=== PATIENT | female | born 1965 | race Caucasian/White ===

== ENCOUNTER 2019-10-20 08:41 | Outpatient (CLI) | payer OTHER ==
[2019-10-20] MEDS ORDERED: OMNIPAQUE 350 MG/ML, 100ML BOTTLE ONE (15:01)
== END 2019-10-20 23:59 | disposition home or self-care (01) ==
LOC: CFH 08:41
PROVIDERS: ATTEND Nurse Practitioner Family
DX: R93.89 Abnormal findings on diagnostic imaging of other specified body structures (principal)
CPT/HCPCS: 70491; 82565; Q9967

== ENCOUNTER 2021-08-16 06:55 | Outpatient (CLI) | payer OTHER | END 2021-08-16 23:59 | disposition home or self-care (01) | LOC: CFH 06:55 | PROVIDERS: ATTEND Nurse Practitioner Family | DX: S42.031A Displaced fracture of lateral end of right clavicle, initial encounter for closed fracture (principal); S43.431A Superior glenoid labrum lesion of right shoulder, initial encounter; M19.011 Primary osteoarthritis, right shoulder; M75.01 Adhesive capsulitis of right shoulder; X58.XXXA Exposure to other specified factors, initial encounter; Y93.89 Activity, other specified; Y92.89 Other specified places as the place of occurrence of the external cause; Y99.8 Other external cause status ==